=== PATIENT | female | born 1965 | race African-American/Black ===

== ENCOUNTER 2019-10-05 20:52 | Emergency (ER) | payer OTHER ==
[~2019-10-05] VITALS: Ht 165.1 cm; Wt 54.4 kg
[~2019-10-05 20:52] MED LIST: AMLO5TAB10 PO; BUDE10.2 IH
[2019-10-05 21:31] LABS: BILIRUBIN,URINE NEGATIVE (NEG); CLARITY,URINE CLEAR; COLOR,URINE YELLOW; NITRITE,URINE NEGATIVE (NEG); PH,URINE 5.5; PROTEIN,URINE 30 mg/dL (NEG-TRACE); UROBILINOGEN,URINE 0.2 mg/dL (0.2 mg/dL)
[2019-10-05 21:36] LABS: SQUAMOUS EPITHELIAL CELL,UR MOD /LPF
[2019-10-05 21:38] LABS: BACTERIA,URINE FEW /HPF (0-FEW); BASO # 0.1 x10^3/uL (0.0-0.2); BASO % 3 % (0-3); EOS # 0.4 x10^3/uL (0.0-0.7); EOS % 9 % (0-3); HEMATOCRIT 40.5 % (36.0-47.0); HEMOGLOBIN 13.7 g/dL (12.0-15.5); LYMPH # 2.7 x10^3/uL (1.0-4.8); LYMPH % 58 % (24-48); MEAN CORPUSCULAR HEMOGLOBIN 34 pg (25-35); MEAN CORPUSCULAR HGB CONC 34 g/dL (31-37); MEAN CORPUSCULAR VOLUME 100 fL (79-100); MONO # 0.5 x10^3/uL (0.0-1.1); MONO % 10 % (0-9); NEUT % 21 % (31-73); PLATELET COUNT 243 x10^3/uL (140-400); RBC,URINE 0 /HPF (0-2); RED BLOOD COUNT 4.03 x10^6/uL (3.50-5.40); RED CELL DISTRIBUTION WIDTH 14.4 % (11.5-14.5); TRICHOMONAS,URINE PRESENT; WHITE BLOOD COUNT 4.7 x10^3/uL (4.0-11.0)
[2019-10-05 21:39] LABS: CALCIUM 8.5 mg/dL (8.5-10.1); CREATININE 0.8 mg/dL (0.6-1.0); GFR 90.1; POTASSIUM 3.8 mmol/L (3.5-5.1)
[2019-10-05 21:44] LABS: ALBUMIN 3.5 g/dL (3.4-5.0); ALBUMIN/GLOBULIN RATIO 0.9 (1.0-1.7); MAGNESIUM 1.8 mg/dL (1.8-2.4); TOTAL BILIRUBIN 0.1 mg/dL (0.2-1.0); TOTAL PROTEIN 7.3 g/dL (6.4-8.2)
[2019-10-05 21:45] LABS: PROTHROMBIN TIME PATIENT 12.4 SEC (11.7-14.0)
--- NOTE | 2019-10-05 22:36 | RAD ---
EXAM: CHEST ONE VIEW. HISTORY: Shortness of breath. COMPARISON: 12/30/2015. FINDINGS: A frontal view of the chest is obtained. There are no confluent infiltrates. There is no pneumothorax or pleural effusion. The heart is not enlarged. IMPRESSION: 1. No confluent infiltrates. Electronically signed by: Chad Marinelli MD (10/05/2019 10:33 PM) [facility]
[2019-10-05] MEDS: IPRATRPIUM/ALBUTEROL 0.5/2.5MG 3 ML NEBU. NEB ONE (23:09)
[2019-10-05] MEDS ORDERED: ALBU2.5V8 IH (23:49)
[2019-10-05] MEDS ORDERED: PRED20TA PO (23:49)
[2019-10-05] MEDS ORDERED: AZIT250T PO (23:49)
--- NOTE | 2019-10-05 23:49 | PHYS DOC ---
Past Medical History Past Medical History: Asthma, Depression, Hypertension Additional Past Medical Histor: seasonal allergies Past Surgical History: Additional Past Surgical Histo: Oral Alcohol Use: Heavy Drug Use: None Adult General Chief Complaint Chief Complaint: SHORTNESS OF BREATH HPI HPI Patient is a 54 year old male who was brought here by EMS from home due to trouble breathing and cough for the last 4 days. Patient has COPD and asthma, she is a smoker. Patient continued to smoke pack a day. She is not on oxygen at home. She had been coughing so much that her chest hurt when she cough. Patient is a very poor historian, patient kept falling asleep. Patient appeared intoxicated. She denies any history of coronary artery disease, no recent travel or operation. All other ROS is negative unless otherwise noted in HPI Review of Systems Review of Systems See above Current Medications Current Medications Current Medications Medications (Trade) Dose Ordered Sig/Krishna Start Time Stop Time Status Last Admin Dose Admin Albuterol/ Ipratropium (Duoneb) 3 ml 1X ONCE 10/05/19 23:45 10/05/19 23:46 DC 10/06/19 00:12 3 ML Allergies Allergies Allergies Coded Allergies Type Severity Reaction Last Updated Verified shellfish derived Allergy Severe swelling 10/05/19 No Penicillins Allergy Intermediate rash 10/05/19 No Physical Exam Physical Exam See above Constitutional: Well developed, well nourished, no acute distress, non-toxic appearance. [] HENT: Normocephalic, atraumatic, bilateral external ears normal, oropharynx moist, no oral exudates, nose normal. [] Eyes: PERRLA, EOMI, conjunctiva normal, no discharge. [] Neck: Normal range of motion, no tenderness, supple, no stridor. [] Cardiovascular:Heart rate regular rhythm, no murmur [] Lungs & Thorax: Diffuse expiratory and expiratory wheezing, NO respiratory distr ess, NO STRIDOR. Abdomen: Bowel sounds normal, soft, no tenderness, no masses, no pulsatile masses. [] Skin: Warm, dry, no erythema, no rash. [] Back: No tenderness, no CVA tenderness. [] Extremities: No tenderness, no cyanosis, no clubbing, ROM intact, no edema. [] Neurologic: Alert and oriented X 3, normal motor function, normal sensory function, no focal deficits noted. [] Psychologic: Affect normal, judgement normal, mood normal. [] Current Patient Data Vital Signs Vital Signs Date Time Temp Pulse Resp B/P (MAP) Pulse Ox O2 Delivery O2 Flow Rate FiO2 10/06/19 00:14 94 Room Air 10/05/19 23:55 76 84/50 (61) 10/05/19 20:52 98.2 18 98.2 Lab Values Laboratory Tests Test 10/05/19 21:14 White Blood Count 4.7 x10^3/uL (4.0-11.0) Red Blood Count 4.03 x10^6/uL (3.50-5.40) Hemoglobin 13.7 g/dL (12.0-15.5) Hematocrit 40.5 % (36.0-47.0) Mean Corpuscular Volume 100 fL (79-100) Mean Corpuscular Hemoglobin 34 pg (25-35) Mean Corpuscular Hemoglobin Concent 34 g/dL (31-37) Red Cell Distribution Width 14.4 % (11.5-14.5) Platelet Count 243 x10^3/uL (140-400) Neutrophils (%) (Auto) 21 % (31-73) L Lymphocytes (%) (Auto) 58 % (24-48) H Monocytes (%) (Auto) 10 % (0-9) H Eosinophils (%) (Auto) 9 % (0-3) H Basophils (%) (Auto) 3 % (0-3) Neutrophils # (Auto) 1.0 x10^3/uL (1.8-7.7) L Lymphocytes # (Auto) 2.7 x10^3/uL (1.0-4.8) Monocytes # (Auto) 0.5 x10^3/uL (0.0-1.1) Eosinophils # (Auto) 0.4 x10^3/uL (0.0-0.7) Basophils # (Auto) 0.1 x10^3/uL (0.0-0.2) Prothrombin Time 12.4 SEC (11.7-14.0) Prothrombin Time INR 1.0 (0.8-1.1) Urine Collection Type Unknown Urine Color Yellow Urine Clarity Clear Urine pH 5.5 Urine Specific [place] <=1.005 Urine Protein 30 mg/dL (NEG-TRACE) Urine Glucose (UA) Negative mg/dL (NEG) Urine Ketones (Stick) Negative mg/dL (NEG) Urine Blood Negative (NEG) Urine Nitrite Negative (NEG) Urine Bilirubin Negative (NEG) Urine Urobilinogen Dipstick 0.2 mg/dL (0.2 mg/dL) Urine Leukocyte Esterase Small (NEG) Urine RBC 0 /HPF (0-2) Urine WBC 5-10 /HPF (0-4) Urine Squamous Epithelial Cells Mod /LPF Urine Bacteria Few /HPF (0-FEW) Urine Trichomonas Present Sodium Level 145 mmol/L (136-145) Potassium Level 3.8 mmol/L (3.5-5.1) Chloride Level 106 mmol/L (98-107) Carbon Dioxide Level 25 mmol/L (21-32) Anion Gap 14 (6-14) Blood Urea Nitrogen 9 mg/dL (7-20) Creatinine 0.8 mg/dL (0.6-1.0) Estimated GFR (Cockcroft-Gault) 90.1 BUN/Creatinine Ratio 11 (6-20) Glucose Level 92 mg/dL (70-99) Calcium Level 8.5 mg/dL (8.5-10.1) Magnesium Level 1.8 mg/dL (1.8-2.4) Total Bilirubin 0.1 mg/dL (0.2-1.0) L Aspartate Amino Transferase (AST) 99 U/L (15-37) H Alanine Aminotransferase (ALT) 49 U/L (14-59) Alkaline Phosphatase 65 U/L (46-116) Troponin I Quantitative < 0.017 ng/mL (0.000-0.055) XZ-Irs-R-Type Natriuretic Peptide 36 pg/mL (0-124) Total Protein 7.3 g/dL (6.4-8.2) Albumin 3.5 g/dL (3.4-5.0) Albumin/Globulin Ratio 0.9 (1.0-1.7) L Lipase 229 U/L (73-393) Laboratory Tests 10/05/19 21:14 Laboratory Tests 10/05/19 21:14 EKG EKG EKG with heart rate of 74 beats per minutes, sinus rhythm, no ST elevation, Radiology/Procedures Radiology/Procedures [][facility] [address] [place] [address] IMAGING REPORT Signed PATIENT: JOSUE CHAND AACCOUNT: [id number] : 1965 LOCATION: ER AGE: 54 SEX: F EXAM STATUS: REG ER ORD. PHYSICIAN: ESTEFANI PHILIP DO REASON: SOA PROCEDURE: PORTABLE CHEST 1V EXAM: CHEST ONE VIEW. HISTORY: Shortness of breath. COMPARISON: 12/30/2015. FINDINGS: A frontal view of the chest is obtained. There are no confluent infiltrates. There is no pneumothorax or pleural effusion. The heart is not enlarged. IMPRESSION: 1. No confluent infiltrates. Electronically signed by: Chad Marinelli MD (10/05/2019 10:33 PM) [facility] DICTATED and SIGNED BY: RONA MARINELLI MD DATE: 10/05/192232 Course & Med Decision Making Course & Med Decision Making Pertinent Labs and Imaging studies reviewed. (See chart for details) She is A 54 -year-old female who was evaluated in the ER for COPD exacerbation. Oxygen saturation is 96% on room air, chest x-ray showed no pneumonia, she will be discharged home with COPD and bronchitis. Patient WAS given prescription for steroid, ALBUTEROL mdi, zithromax. Dragon Disclaimer Dragon Disclaimer This electronic medical record was generated, in whole or in part, using a voice recognition dictation system. Departure Departure Impression: Primary Impression: COPD with exacerbation Disposition: HOME, SELF-CARE Condition: IMPROVED Referrals: MARCO A YIN MD (PCP) PLEASE CALL YOUR DOCTOR ON MONDAY FOR REEVALUATION. Patient Instructions: Chronic Obstructive Pulmonary Disease Exacerbation Scripts Prednisone (PREDNISONE) 20 Mg Tablet 20 MG PO DAILY for 12 Days, #12 TAB Prov: ESTEFANI PHILIP DO 10/05/19 Azithromycin (ZITHROMAX) 250 Mg Tablet 1 PKG PO UD, #6 TAB Prov: ESTEFANI PHILIP DO 10/05/19 Albuterol Sulfate (PROAIR HFA INHALER) 8.5 Gm Hfa.aer.ad 2 PUFF IH PRN Q4-6HRS PRN for wheezing for 21 Days, #1 INHALER 0 Refills Prov: ESTEFANI PHILIP DO 10/05/19 ESTEFANI PHILIP DO Oct 05, 2019 23:49
[2019-10-06] MEDS: IPRATRPIUM/ALBUTEROL 0.5/2.5MG 3 ML NEBU. NEB ONE (00:12)
[2019-10-06 00:20] VITALS: BP 121/69
--- NOTE | 2019-10-06 16:32 | EKG ---
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
== END 2019-10-06 00:30 | disposition home or self-care (01) ==
LOC: ER 20:52
DX: J44.1 Chronic obstructive pulmonary disease with (acute) exacerbation (principal); I10 Essential (primary) hypertension; F10.20 Alcohol dependence, uncomplicated; Y90.9 Presence of alcohol in blood, level not specified; Z88.0 Allergy status to penicillin; Z91.013 Allergy to seafood
CPT/HCPCS: 36415; 71045; 80053; 81001; 83690; 83735; 83880; 84484; 85025; 85610; 87086; 93005; 94640; 94760; 99285; J7620

== ENCOUNTER 2019-12-12 13:10 | Emergency (ER) | payer OTHER ==
[~2019-12-12] VITALS: Ht 160 cm; Wt 54.5 kg
[~2019-12-12 13:10] MED LIST changes: +ALBU2.5V8 IH; +AZIT250T PO; +PRED20TA PO
[2019-12-12] MEDS ORDERED: IPRATRPIUM/ALBUTEROL 0.5/2.5MG 3 ML NEBU. NEB ONE (13:30)
[2019-12-12] MEDS ORDERED: methylPREDNISolone SOD SUCC PF 125 MG/2 ML VIAL. IV ONE (13:30)
[2019-12-12 14:08] LABS: BASO # 0.2 x10^3/uL (0.0-0.2); BASO % 4 % (0-3); EOS # 0.6 x10^3/uL (0.0-0.7); EOS % 14 % (0-3); HEMATOCRIT 41.6 % (36.0-47.0); HEMOGLOBIN 14.1 g/dL (12.0-15.5); LYMPH # 2.6 x10^3/uL (1.0-4.8); LYMPH % 55 % (24-48); MEAN CORPUSCULAR HEMOGLOBIN 34 pg (25-35); MEAN CORPUSCULAR HGB CONC 34 g/dL (31-37); MEAN CORPUSCULAR VOLUME 99 fL (79-100); MONO # 0.4 x10^3/uL (0.0-1.1); MONO % 8 % (0-9); NEUT # 0.9 x10^3/uL (1.8-7.7); NEUT % 19 % (31-73); PLATELET COUNT 295 x10^3/uL (140-400); RED CELL DISTRIBUTION WIDTH 14.1 % (11.5-14.5); WHITE BLOOD COUNT 4.6 x10^3/uL (4.0-11.0)
--- NOTE | 2019-12-12 14:12 | RAD ---
AP portable chest radiograph 12/12/2019 Clinical History: Cough and shortness of breath. An AP erect portable digital radiograph of the chest was obtained. Comparison study is dated 10/05/2019. The cardiac and mediastinal silhouettes are within normal limits in size and configuration. No acute pulmonary infiltrate is seen. No pleural effusion or pneumothorax is noted. The osseous structures are unchanged. Impression: No acute abnormality is seen. Electronically signed by: Hernando Young MD (12/12/2019 2:09 PM) [facility]
[2019-12-12 14:17] LABS: CALCIUM 9.1 mg/dL (8.5-10.1); CREATININE 0.6 mg/dL (0.6-1.0); GFR 125.6
[2019-12-12 14:23] LABS: ALBUMIN 3.5 g/dL (3.4-5.0); TOTAL BILIRUBIN 0.1 mg/dL (0.2-1.0); TOTAL PROTEIN 7.1 g/dL (6.4-8.2)
--- NOTE | 2019-12-12 14:30 | PHYS DOC ---
Past Medical History Past Medical History: Asthma, Depression, Hypertension Additional Past Medical Histor: seasonal allergies Past Surgical History: Additional Past Surgical Histo: Oral Smoking Status: Current Every Day Smoker Alcohol Use: Heavy Drug Use: None Adult General Chief Complaint Chief Complaint: SHORTNESS OF BREATH HPI HPI Patient is a 54 year old female who presented to ER today for evaluation of 2 weeks history of cough, flulike symptoms. Patient also complained of fever and chills. Patient denies any abdominal pain, no nausea vomiting. Patient denies any chest pain, but having trouble breathing. Patient denies any recent travel out of the country. No travel to [facility] or [place]. Patient has history of asthma, she was given DuoNeb treatment by EMS on route. Review of Systems Review of Systems Constitutional: Denies fever or chills [] Eyes: Denies change in visual acuity, redness, or eye pain [] HENT: Denies nasal congestion or sore throat [] Respiratory: Denies cough or shortness of breath [] Cardiovascular: No additional information not addressed in HPI [] GI: Denies abdominal pain, nausea, vomiting, bloody stools or diarrhea [] : Denies dysuria or hematuria [] Musculoskeletal: Denies back pain or joint pain [] Integument: Denies rash or skin lesions [] Neurologic: Denies headache, focal weakness or sensory changes [] Endocrine: Denies polyuria or polydipsia [] All other systems were reviewed and found to be within normal limits, except as documented in this note. Current Medications Current Medications Current Medications Medications (Trade) Dose Ordered Sig/Krishna Start Time Stop Time Status Last Admin Dose Admin Albuterol/ Ipratropium (Duoneb) 3 ml 1X ONCE 12/12/19 13:30 12/12/19 13:33 DC 12/12/19 13:41 3 ML Methylprednisolone Sodium Succinate (SOLU-Medrol 125MG VIAL) 125 mg 1X ONCE 12/12/19 13:30 12/12/19 13:33 DC 12/12/19 14:58 125 MG Allergies Allergies Allergies Coded Allergies Type Severity Reaction Last Updated Verified shellfish derived Allergy Severe swelling 10/05/19 No Penicillins Allergy Intermediate rash 10/05/19 No Physical Exam Physical Exam Constitutional: Well developed, well nourished, no acute distress, non-toxic appearance. [] HENT: Normocephalic, atraumatic, bilateral external ears normal, oropharynx moist, no oral exudates, nose normal. [] Eyes: PERRLA, EOMI, conjunctiva normal, no discharge. [] Neck: Normal range of motion, no tenderness, supple, no stridor. [] Cardiovascular:Heart rate regular rhythm, no murmur [] Lungs & Thorax: Bilateral breath sounds clear to auscultation [] Abdomen: Bowel sounds normal, soft, no tenderness, no masses, no pulsatile masses. [] Skin: Warm, dry, no erythema, no rash. [] Back: No tenderness, no CVA tenderness. [] Extremities: No tenderness, no cyanosis, no clubbing, ROM intact, no edema. [] Neurologic: Alert and oriented X 3, normal motor function, normal sensory function, no focal deficits noted. [] Psychologic: Affect normal, judgement normal, mood normal. [] Current Patient Data Vital Signs Vital Signs Date Time Temp Pulse Resp B/P (MAP) Pulse Ox O2 Delivery O2 Flow Rate FiO2 12/12/19 14:25 65 111/67 (82) 92 Room Air 12/12/19 13:10 98.6 20 98.6 Lab Values Laboratory Tests Test 12/12/19 13:21 White Blood Count 4.6 x10^3/uL (4.0-11.0) Red Blood Count 4.20 x10^6/uL (3.50-5.40) Hemoglobin 14.1 g/dL (12.0-15.5) Hematocrit 41.6 % (36.0-47.0) Mean Corpuscular Volume 99 fL (79-100) Mean Corpuscular Hemoglobin 34 pg (25-35) Mean Corpuscular Hemoglobin Concent 34 g/dL (31-37) Red Cell Distribution Width 14.1 % (11.5-14.5) Platelet Count 295 x10^3/uL (140-400) Neutrophils (%) (Auto) 19 % (31-73) L Lymphocytes (%) (Auto) 55 % (24-48) H Monocytes (%) (Auto) 8 % (0-9) Eosinophils (%) (Auto) 14 % (0-3) H Basophils (%) (Auto) 4 % (0-3) H Neutrophils # (Auto) 0.9 x10^3/uL (1.8-7.7) L Lymphocytes # (Auto) 2.6 x10^3/uL (1.0-4.8) Monocytes # (Auto) 0.4 x10^3/uL (0.0-1.1) Eosinophils # (Auto) 0.6 x10^3/uL (0.0-0.7) Basophils # (Auto) 0.2 x10^3/uL (0.0-0.2) Segmented Neutrophils % 21 % (35-66) L Lymphocytes % 51 % (24-48) H Monocytes % 5 % (0-10) Eosinophils % 19 % (0-5) H Basophils % 4 % (0-3) H Platelet Estimate Adequate (ADEQUATE) Sodium Level 144 mmol/L (136-145) Potassium Level 4.0 mmol/L (3.5-5.1) Chloride Level 104 mmol/L (98-107) Carbon Dioxide Level 30 mmol/L (21-32) Anion Gap 10 (6-14) Blood Urea Nitrogen 6 mg/dL (7-20) L Creatinine 0.6 mg/dL (0.6-1.0) Estimated GFR (Cockcroft-Gault) 125.6 BUN/Creatinine Ratio 10 (6-20) Glucose Level 96 mg/dL (70-99) Calcium Level 9.1 mg/dL (8.5-10.1) Total Bilirubin 0.1 mg/dL (0.2-1.0) L Aspartate Amino Transferase (AST) 94 U/L (15-37) H Alanine Aminotransferase (ALT) 81 U/L (14-59) H Alkaline Phosphatase 69 U/L (46-116) Total Protein 7.1 g/dL (6.4-8.2) Albumin 3.5 g/dL (3.4-5.0) Albumin/Globulin Ratio 1.0 (1.0-1.7) Laboratory Tests 12/12/19 13:21 Laboratory Tests 12/12/19 13:21 EKG EKG [] Radiology/Procedures Radiology/Procedures [][facility] [address] [place], [place] [id number] IMAGING REPORT Signed PATIENT: JOSUE CHAND AACCOUNT: [id number] : 1965 LOCATION: ER AGE: 54 SEX: F EXAM STATUS: REG ER ORD. PHYSICIAN: ESTEFANI PHILIP DO REASON: COUGH, SOA PROCEDURE: CHEST AP ONLY AP portable chest radiograph 12/12/2019 Clinical History: Cough and shortness of breath. An AP erect portable digital radiograph of the chest was obtained. Comparison study is dated 10/05/2019. The cardiac and mediastinal silhouettes are within normal limits in size and configuration. No acute pulmonary infiltrate is seen. No pleural effusion or pneumothorax is noted. The osseous structures are unchanged. Impression: No acute abnormality is seen. Electronically signed by: Hernando Young MD (12/12/2019 2:09 PM) [facility] DICTATED and SIGNED BY: HERNANDO YOUNG MD DATE: 12/12/19 1409 Course & Med Decision Making Course & Med Decision Making Pertinent Labs and Imaging studies reviewed. (See chart for details) Patient is a 54-year-old female who was evaluated in the ER due to asthmatic bronchitis. Patient was given medication, felt much better. Patient will be discharged home with medication. Patient was instructed return to ER if she get any better. Dragon Disclaimer Dragon Disclaimer This electronic medical record was generated, in whole or in part, using a voice recognition dictation system. Departure Departure Impression: Primary Impression: Bronchitis Additional Impression: Asthmatic bronchitis Disposition: 01 HOME, SELF-CARE Condition: STABLE Referrals: MARCO A YIN MD (PCP) please follow up with your doctor next week. Patient Instructions: Acute Bronchitis, Asthma, Acute Bronchospasm Additional Instructions: Thank you for visiting our Emergency Department. We appreciate you trusting us with your care. If any additional problems come up don't hesitate to return to visit us. Please follow up with your primary care provider so they can plan additional care if needed and know about the problem that you had. If symptoms worsen come back to the Emergency Department. Any concerning symptoms that start such as chest pain, shortness of air, weakness or numbness on one side of the body, running high fevers or any other concerning symptoms return to the ER. Scripts Albuterol Sulfate (PROAIR HFA INHALER) 8.5 Gm Hfa.aer.ad 2 PUFF IH PRN Q4-6HRS PRN for wheezing for 21 Days, #1 INHALER 0 Refills Prov: ESTEFANI PHILIP DO 12/12/19 Prednisone (PREDNISONE) 20 Mg Tablet 1 TAB PO DAILY for 10 Days, #10 TAB Prov: ESTEFANI PHILIP DO 12/12/19 Azithromycin (ZITHROMAX) 250 Mg Tablet 1 PKG PO UD, #6 TAB Prov: ESTEFANI PHILIP DO 12/12/19 Problem Qualifiers ESTEFANI PHILIP DO Dec 12, 2019 14:30
[2019-12-12 15:04] LABS: % BASOS 4 % (0-3); % EOS 19 % (0-5); % LYMPHS 51 % (24-48); % MONOS 5 % (0-10); % SEGS 21 % (35-66); PLT ESTIMATE ADEQUATE (ADEQUATE)
[2019-12-12] MEDS ORDERED: ALBU2.5V8 IH (15:49)
[2019-12-12] MEDS ORDERED: AZIT250T PO (15:49)
[2019-12-12] MEDS ORDERED: PRED20TA PO (15:49)
[2019-12-12 16:55] VITALS: BP 145/89
== END 2019-12-12 17:20 | disposition home or self-care (01) ==
LOC: ER 13:10
DX: J45.909 Unspecified asthma, uncomplicated (principal); I10 Essential (primary) hypertension; F17.200 Nicotine dependence, unspecified, uncomplicated; F10.20 Alcohol dependence, uncomplicated; Y90.9 Presence of alcohol in blood, level not specified; Z88.0 Allergy status to penicillin; Z91.013 Allergy to seafood
CPT/HCPCS: 36415; 71045; 80053; 85007; 85025; 94640; 96374; 99285; J2930

== ENCOUNTER 2020-01-20 16:55 | Emergency (ER) | payer OTHER ==
[~2020-01-20] VITALS: Ht 157.5 cm; Wt 59.0 kg
[2020-01-20 17:02] VITALS: BP 138/82
--- NOTE | 2020-01-20 17:30 | PHYS DOC ---
Past Medical History Past Medical History: Asthma, Depression, Hypertension Additional Past Medical Histor: seasonal allergies Past Surgical History: Additional Past Surgical Histo: Oral Smoking Status: Current Every Day Smoker Alcohol Use: Heavy Drug Use: None General Adult EDM: Chief Complaint: right leg weakness, lower back pain HPI: HPI: Patient is a 55 year old female presented to ER today for evaluation of low back pain that radiates to her right leg. Patient also complained right leg weakness. All this symptom has been going on for more than 6 months. Patient was seen by her family doctor, diagnosed with arthritis. But patient is not satisfied with her diagnosis. Patient denies any bowel or bladder incontinence. Patient denied headache, no neck pain, no abdominal pain, no nausea or vomiting. Patient has history of hypertension. Patient says sometimes she cannot feel her right leg because of the numbness. Patient called her doctor again today who told her to come to the ER for evaluation. Patient denies any injury. Review of Systems: Review of Systems: Constitutional: Denies fever or chills. [] Eyes: Denies change in visual acuity. [] HENT: Denies nasal congestion or sore throat. [] Respiratory: Denies cough or shortness of breath. [] Cardiovascular: Denies chest pain or edema. [] GI: Denies abdominal pain, nausea, vomiting, bloody stools or diarrhea. [] : Denies dysuria. [] Musculoskeletal: Positive for lower back pain with right leg weakness. Integument: Denies rash. [] Neurologic: Denies headache, focal weakness or sensory changes. [] Endocrine: Denies polyuria or polydipsia. [] Lymphatic: Denies swollen glands. [] Psychiatric: Denies depression or anxiety. [] Heart Score: Risk Factors: Risk Factors: DM, Current or recent (<one month) smoker, HTN, HLP, family history of CAD, obesity. Risk Scores: Score 0 - 3: 2.5% MACE over next 6 weeks - Discharge Home Score 4 - 6: 20.3% MACE over next 6 weeks - Admit for Clinical Observation Score 7 - 10: 72.7% MACE over next 6 weeks - Early Invasive Strategies Allergies: Allergies: Allergies Coded Allergies Type Severity Reaction Last Updated Verified shellfish derived Allergy Severe swelling 10/05/19 No Penicillins Allergy Intermediate rash 10/05/19 No Physical Exam: PE: Constitutional: Well developed, well nourished, no acute distress, non-toxic appearance. [] HENT: Normocephalic, atraumatic, bilateral external ears normal, oropharynx moist, no oral exudates, nose normal. [] Eyes: PERRLA, EOMI, conjunctiva normal, no discharge. [] Neck: Normal range of motion, no tenderness, supple, no stridor. [] Cardiovascular:Heart rate regular rhythm, no murmur [] Lungs & Thorax: Bilateral breath sounds clear to auscultation [] Abdomen: Bowel sounds normal, soft, no tenderness, no masses, no pulsatile masses. [] Skin: Warm, dry, no erythema, no rash. [] Back: No tenderness, no CVA tenderness. [] Extremities: No tenderness, no cyanosis, ROM intact, no edema. There is no leg swelling, no calf swelling or tenderness. There is strong bilateral dorsalis pedis pulse. Neurologic: Alert and oriented X 3, right leg is weaker than left leg, patient can move all of her extremities, normal sensory function, no focal deficits noted. [] Psychologic: Affect normal, judgement normal, mood normal. [] EKG: EKG: [] Radiology/Procedures: Radiology/Procedures: [][facility] [address] [place] [address] IMAGING REPORT Signed PATIENT: JOSUE CHAND AACCOUNT: [id number] : 1965 LOCATION: ER AGE: 55 SEX: F EXAM STATUS: REG ER ORD. PHYSICIAN: ESTEFANI PHILIP DO REASON: right leg weakness and numbness PROCEDURE: CT HEAD WO CONTRAST PQRS Compliance Statement: One or more of the following individualized dose reduction techniques were utilized for this examination: 1. Automated exposure control 2. Adjustment of the mA and/or kV according to patient size 3. Use of iterative reconstruction technique CT head without contrast 01/20/2020 5:08 PM INDICATION: Right leg weakness and numbness COMPARISON: None available TECHNIQUE: Multiple axial CT images of the head were obtained from skull base through the vertex without intravenous contrast. FINDINGS: Head: Ventricles, sulci and basal cisterns are within normal limits. Low-attenuation in the periventricular white matter is suggestive of chronic small vessel ischemic changes. There is no hydrocephalus. Canas-white matter differentiation is normal. There is no acute intracranial hemorrhage. There is no mass, mass effect or midline shift. Posterior fossa is normal in appearance. Visualized portions of the orbits are normal. Paranasal sinuses are well aerated. Mastoid air cells are well aerated. Scalp and calvaria are normal. IMPRESSION: No acute intracranial hemorrhage. Electronically signed by: Jeff Asencio MD (01/20/2020 5:27 PM) [facility] DICTATED and SIGNED BY: JEFF ASENCIO MD DATE: 01/20/20 172 X-ray of lumbar spine did not show any acute problem , some arthritis in L5-S1 area. Course & Med Decision Making: Course & Med Decision Making Pertinent Labs and Imaging studies reviewed. (See chart for details) [] Dragon Disclaimer: Dragon Disclaimer: This electronic medical record was generated, in whole or in part, using a voice recognition dictation system. Departure Departure Impression: Primary Impression: Sciatica of right side Disposition: 01 HOME, SELF-CARE Condition: STABLE Referrals: MARCO A YIN MD (PCP) Follow-up with your doctor for outpatient evaluation with MRI of your lower back Patient Instructions: ESTEFANI Saldana DO Jan 20, 2020 17:30
[2020-01-20 17:34] LABS: BASO % 0 % (0-3); EOS # 0.1 x10^3/uL (0.0-0.7); EOS % 2 % (0-3); HEMATOCRIT 38.9 % (36.0-47.0); HEMOGLOBIN 13.2 g/dL (12.0-15.5); LYMPH # 2.7 x10^3/uL (1.0-4.8); LYMPH % 64 % (24-48); MEAN CORPUSCULAR HEMOGLOBIN 33 pg (25-35); MEAN CORPUSCULAR HGB CONC 34 g/dL (31-37); MEAN CORPUSCULAR VOLUME 98 fL (79-100); MONO # 0.3 x10^3/uL (0.0-1.1); MONO % 7 % (0-9); NEUT # 1.1 x10^3/uL (1.8-7.7); NEUT % 27 % (31-73); PLATELET COUNT 203 x10^3/uL (140-400); RED BLOOD COUNT 3.96 x10^6/uL (3.50-5.40); RED CELL DISTRIBUTION WIDTH 14.2 % (11.5-14.5); WHITE BLOOD COUNT 4.2 x10^3/uL (4.0-11.0)
[2020-01-20 17:38] LABS: CALCIUM 8.4 mg/dL (8.5-10.1); CREATININE 0.7 mg/dL (0.6-1.0); GFR 104.7; POTASSIUM 3.7 mmol/L (3.5-5.1)
[2020-01-20 17:45] LABS: ALBUMIN 3.4 g/dL (3.4-5.0); ALBUMIN/GLOBULIN RATIO 0.9 (1.0-1.7); MAGNESIUM 1.5 mg/dL (1.8-2.4); TOTAL BILIRUBIN 0.2 mg/dL (0.2-1.0); TOTAL PROTEIN 7.2 g/dL (6.4-8.2)
--- NOTE | 2020-01-20 17:46 | RAD ---
LUMBAR SPINE 2-3V History: Low back pain into the right leg, numbness, loss of feeling in the leg Comparison: None available at this time Findings: 3 views lumbar spine are submitted. Lumbar vertebral body stature and AP alignment are maintained. There is fairly advanced L5-S1 degenerative disc disease, minimally of the more superior levels. There is facet degenerative change greatest at L5-S1 and L4-5, greater on the left. Calcifications in the right pelvis are more likely phleboliths. Impression: 1. There is L5-S1 degenerative disc disease, also facet degenerative change greatest at L5-S1 and L4-5. Electronically signed by: Frank Valencia MD (01/20/2020 5:43 PM) [facility]
[2020-01-20 17:51] LABS: FREE T4 0.72 ng/dL (0.76-1.46); THYROID STIM HORMONE (TSH) 0.646 uIU/mL (0.358-3.74)
== END 2020-01-20 17:53 | disposition home or self-care (01) ==
LOC: ER 16:55
DX: M54.41 Lumbago with sciatica, right side (principal); R51 Headache; I10 Essential (primary) hypertension; J45.909 Unspecified asthma, uncomplicated; F17.200 Nicotine dependence, unspecified, uncomplicated; F10.20 Alcohol dependence, uncomplicated; Y90.9 Presence of alcohol in blood, level not specified; Z88.0 Allergy status to penicillin; Z91.013 Allergy to seafood
CPT/HCPCS: 36415; 70450; 72100; 80053; 83735; 84439; 84443; 85025; 99285-25

== ENCOUNTER 2020-02-25 11:42 | Inpatient (IN) | payer OTHER ==
[~2020-02-25] VITALS: Ht 157.5 cm; Wt 65.4 kg
[2020-02-25 12:00] VITALS: BP 129/67
[2020-02-25] MEDS ORDERED: IBUP-985 PO (12:44)
[2020-02-25] MEDS ORDERED: ATOR10TA60 PO (12:45)
[2020-02-25] MEDS ORDERED: NICO1PAT25 TP (12:45)
[2020-02-25] MEDS ORDERED: FLUT16SP NS (12:45)
[2020-02-25] MEDS ORDERED: NICO4LOZ93 PO (12:45)
[2020-02-25] MEDS ORDERED: PRED50TA PO (12:45)
[2020-02-25] MEDS ORDERED: CYCL5TAB PO (12:45)
[2020-02-25] MEDS ORDERED: MONT10TA49 PO (12:45)
[2020-02-25] MEDS ORDERED: PROAIR RESPICL90 MCG IN (12:47)
[2020-02-25] MEDS ORDERED: ALBUTEROL SULFATE 2.5 MG/3 ML NEBU. INH PRN (13:30)
[2020-02-25] MEDS ORDERED: IBUPROFEN 200 MG TABLET. PO PRN (13:30)
[2020-02-25] MEDS: ASPIRIN 325 MG TABLET PO SCH (13:49)
--- NOTE | 2020-02-25 14:26 | NUR ---
The patient, JOSUE CAHND, 55 y/o, F admitted by MARCO A YIN MD, was given written information regarding hospital policies, unit procedures and contact persons. Valuables were checked and home medications sent to pharmacy. Patients NIH score on admission is 2 consult placed to neuro and sponsorship coordinator.
[2020-02-25 14:46] LABS: BASO # 0.1 x10^3/uL (0.0-0.2); BASO % 1 % (0-3); EOS % 0 % (0-3); HEMATOCRIT 37.2 % (36.0-47.0); HEMOGLOBIN 12.7 g/dL (12.0-15.5); LYMPH # 2.9 x10^3/uL (1.0-4.8); LYMPH % 47 % (24-48); MEAN CORPUSCULAR HEMOGLOBIN 34 pg (25-35); MEAN CORPUSCULAR HGB CONC 34 g/dL (31-37); MEAN CORPUSCULAR VOLUME 99 fL (79-100); MONO # 0.4 x10^3/uL (0.0-1.1); MONO % 7 % (0-9); NEUT # 2.8 x10^3/uL (1.8-7.7); NEUT % 45 % (31-73); PLATELET COUNT 285 x10^3/uL (140-400); RED BLOOD COUNT 3.76 x10^6/uL (3.50-5.40); RED CELL DISTRIBUTION WIDTH 14.4 % (11.5-14.5); WHITE BLOOD COUNT 6.2 x10^3/uL (4.0-11.0)
--- NOTE | 2020-02-25 14:46 | RAD ---
Single view of the chest. 02/25/2020 1:20 PM Indication: Shortness of breath Comparison: Chest radiograph December 12, 2019 Findings: There is no focal consolidation. There is no pleural effusion or pneumothorax. The cardiomediastinal silhouette and pulmonary vasculature are within normal limits. No acute osseous abnormalities are seen. Impression: No evidence of acute cardiopulmonary process. Electronically signed by: Babak Yates MD (02/25/2020 2:43 PM) [id number]
--- NOTE | 2020-02-25 14:53 | CARD ---
MR#: [id number] Date of Study: 02/25/2020 Ordering Physician: MARCO A YIN, Referring Physician: MARCO A YIN, Tech: Altagracia Cheung RDCS APPROVED REPORT EXAM: Two-dimensional and M-mode echocardiogram with Doppler and color Doppler. Other Information Quality : Good INDICATION CVA/TIA 2D DIMENSIONS RVDd2.7 (2.9-3.5cm)Left Atrium(2D)2.7 (1.6-4.0cm) IVSd1.1 (0.7-1.1cm)Aortic Root(2D)2.9 (2.0-3.7cm) LVDd4.2 (3.9-5.9cm)LVOT Diameter2.1 (1.8-2.4cm) PWd1.0 (0.7-1.1cm)LVDs3.0 (2.5-4.0cm) FS (%) 29.7 %SV45.8 ml LVEF(%)57.1 (>50%) Aortic Valve AoV Peak Corbin.145.2cm/sAoV VTI26.5cm AO Peak GR.8.4mmHgLVOT Peak Corbin.104.8cm/s AO Mean GR.5mmHgAVA (VMAX)2.39cm2 ROGERS (VTI)2.40cm2 Mitral Valve MV E Hwzmnuwt84.2cm/sMV DECEL AOCD921fe MV A Bovrmiog59.2cm/sE/A Ratio1.0 Tricuspid Valve TR P. Qogrwewh448ih/sRAP JEWPTQNT2lkWa TR Peak Gr.54egEvBTKL15uvLj Pulmonary Vein S1 Rdpnjpsq63.2cm/sD2 Zkpuarxi43.2cm/s LEFT VENTRICLE The left ventricle is normal size. There is normal left ventricular wall thickness. The left ventricu lar systolic function is normal. The Ejection Fraction is 55-60%. There is normal LV segmental wall m otion. The left ventricular diastolic function and filling is normal for age. RIGHT VENTRICLE The right ventricle is normal size. The right ventricular systolic function is normal. ATRIA The left atrium size is normal. The right atrium size is normal. Bubble study was technically difficu lt but appears to be positive for interatrial shunt. AORTIC VALVE The aortic valve is calcified but opens well. Doppler and Color Flow revealed no significant aortic r egurgitation. There is no significant aortic valvular stenosis. MITRAL VALVE The mitral valve is calcified but opens well. There is no evidence of mitral valve prolapse. There is no mitral valve stenosis. Doppler and Color-flow revealed trace mitral regurgitation. TRICUSPID VALVE The tricuspid valve is normal in structure and function. Doppler and Color Flow revealed trace tricus pid regurgitation. The PA pressure was estimated at 26 mmHg. There is no tricuspid valve stenosis. PULMONIC VALVE The pulmonary valve is normal in structure and function. Doppler and Color Flow revealed no pulmonic valvular regurgitation. There is no pulmonic valvular stenosis. GREAT VESSELS The aortic root is normal in size. The ascending aorta is normal in size. The IVC is normal in size a nd collapses >50% with inspiration. PERICARDIAL EFFUSION There is no evidence of significant pericardial effusion. Critical Notification Critical Value: No <Conclusion> The left ventricular systolic function is normal. The Ejection Fraction is 55-60%. There is normal LV segmental wall motion. Trace mitral regurgitation. Trace tricuspid regurgitation. The PA pressure was estimated at 26 mmHg. There is no evidence of significant pericardial effusion. Bubble study was technically difficult but appears to be positive for interatrial shunt. Signed by : Pj Grewal, Electronically Approved : 02/25/2020 14:53:03
[2020-02-25 15:00] VITALS: BP 142/91
--- NOTE | 2020-02-25 15:06 | EKG ---
[facility] [address] [place] [address] Test Date: 2020-02-25 Test Time: 15:03:02 Pat Name: JOSUE CHAND Department: Room: 204 1 Gender: F Rn Radiation Oncology: : 1965 Requested By: MARCO A YIN Order Number: [id number] Reading MD: Timmy James MD Measurements Intervals [place] Rate: 83 P: 49 OR: 204 QRS: 31 QRSD: 80 T: 24 QT: 380 QTc: 447 Interpretive Statements SINUS RHYTHM VENTRICULAR PREMATURE COMPLEX(ES) Electronically Signed On 02-27-2020 11:49:48 CDT by Timmy James MD
[2020-02-25 15:09] LABS: ALBUMIN 3.1 g/dL (3.4-5.0); ALK PHOS 73 U/L (46-116); ALT (SGPT) 114 U/L (14-59); ANION GAP 9 (6-14); AST (SGOT) 160 U/L (15-37); BLOOD UREA NITROGEN 7 mg/dL (7-20); BUN/CREATININE RATIO 9 (6-20); CALCIUM 8.1 mg/dL (8.5-10.1); CARBON DIOXIDE 29 mmol/L (21-32); CHLORIDE 105 mmol/L (98-107); CHOLESTEROL 248 mg/dL (0-200); CREATININE 0.8 mg/dL (0.6-1.0); GFR 89.8; GLUCOSE 82 mg/dL (70-99); HDLC 112 mg/dL (40-60); LDLC 120 mg/dL (0-100); POTASSIUM 3.6 mmol/L (3.5-5.1); SODIUM 143 mmol/L (136-145); TOTAL PROTEIN 6.3 g/dL (6.4-8.2); TRIGLYCERIDES 78 mg/dL (0-150); VLDLC 16 mg/dL (0-40)
[2020-02-25 15:26] LABS: CHOLESTEROL/HDL RATIO 2.2; TOTAL BILIRUBIN < 0.1 mg/dL (0.2-1.0)
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
--- NOTE | 2020-02-25 16:15 | RAD ---
Examination: DOPPLER CAROTID BILAT History: Cerebrovascular accident Comparison study: None available. Findings: The common, internal and external carotid arteries were examined by grayscale, color and spectral Doppler ultrasound. There is no significant stenosis in the visualized vessels. Flow in both vertebral arteries was antegrade and normal. The following are the velocities and ratios in the carotid arteries on both sides: Minimal scattered plaque bilaterally seen. RIGHT ICA PV: 35 cm/sec RIGHT CCA PV: 76 cm/sec RIGHT ICA ED: 23 cm/sec RIGHT IC/CCPV: 0.91 RIGHT VERTEBRAL: antegrade flow LEFT ICA PV: 65 cm/sec LEFT CCA PV: 75 cm/sec LEFT ICA ED: 30 cm/sec LEFT IC/CCPV: 0.86 LEFT VERTEBRAL: antegrade flow <50% ICA Stenosis: PSV < 125cm/s (EDV < 40cm/s; SVR < 2.0) 50-69% ICA Stenosis: PSV < 125-229cm/s (EDV 40-99cm/s; SVR 2.0-3.9) >70% ICA Stenosis: PSV > 230cm/s (EDV >100cm/s; SVR >4.0) Impression: No significant hemodynamic stenosis. Minimal scattered plaque bilaterally seen. PQRS Compliance Statement - Stenosis calculations for CT, MR and conventional angiography are based upon measurement of the distal ICA diameter in accordance with the NASCET methodology. Stenosis calculations for carotid ultrasound studies are derived from validated velocity criteria which are known to correlate with the NASCET methodology. Electronically signed by: Viral Santos MD (02/25/2020 4:12 PM) [id number]
--- NOTE | 2020-02-25 16:51 | RAD ---
BRAIN W/O CONTRAST Date: 02/25/2020 3:38 PM Indication: Headache, memory loss, upper extremity numbness, foot drop Comparison: None. Technique: Multiplanar multisequence MRI of the brain was performed without intravenous contrast using the standard protocol. Findings: No acute infarct. No acute hemorrhage. Punctate focus of gradient susceptibility in the right putamen, likely chronic hypertensive microhemorrhage. The ventricles are normal in size and configuration without hydrocephalus. Moderate scattered FLAIR hyperintensities in the subcortical and periventricular deep white matter, a nonspecific finding, most commonly seen with chronic small vessel ischemic disease. The scalp and calvarium are normal. The pituitary and sella are normal. No Chiari malformation. The visualized upper cervical spine is normal. The visualized orbits and globes are normal. The visualized paranasal sinuses are clear. The mastoid air cells are clear. Normal flow voids within the vertebral, basilar, and internal carotid arteries indicating patency. IMPRESSION: 1. No acute infarct, acute hemorrhage, mass, or hydrocephalus. 2. Moderate scattered FLAIR hyperintensities in the subcortical and periventricular deep white matter, a nonspecific finding, most commonly seen with chronic small vessel ischemic disease. Electronically signed by: Frank Keane MD (02/25/2020 4:48 PM) [id number]
--- NOTE | 2020-02-25 17:25 | RAD ---
MRI Cervical Spine Without Contrast History:Headaches, memory loss, arm numbness and neck pain, right foot drop Technique: Multiplanar, multi sequential noncontrast MR imaging was performed of the cervical spine. Comparison: None Findings: There is motion degradation. Cervical cord caliber is within normal limits, no expansile or defined signal abnormality, limited evaluation for subtle signal change due to motion degradation. There is mild cervical dextroscoliosis. Cervical vertebral body stature is overall maintained. There is very minimal posterior subluxation of C4 relative to C5. There is weee-si-rgafggjw C4-5 degenerative disc disease and minimally at C5-6 and C6-7. There is variable degenerative endplate change C4-5-7. There is minimal C6-7 endplate edema probably reactive/degenerative in etiology. There is nonspecific mild prominence of the adenoids. There is T2 hyperintense lesion of the visualized right thyroid gland estimated about 0.8 cm. C2-C3: Spinal canal and neural foramina are adequate. C3-C4: Spinal canal and neural foramina are adequate. C4-C5: There is minimal disc osteophyte complex. Central canal is minimally narrowed about 9 to 10 mm. There is facet and uncovertebral degenerative change. There is probable fairly severe left and moderate to severe right neural foramina compromise. C5-C6: There is negligible disc osteophyte complex. Central canal is adequate about 11 mm. There is bilateral facet degenerative change, also likely mild uncovertebral degenerative change. There is likely mild narrowing of the right neural foramen, left neural foramen not significantly narrowed. C6-C7: There is negligible disc osteophyte complex. Central canal is adequate about 12 mm. There is uncovertebral and facet degenerative change. There is probable mild left and probable moderate to severe right neural foramina compromise. C7-T1: Spinal canal and neural foramina are adequate. Impression: 1. There is mild spinal stenosis C4-5. There is suspected neural foramina compromise as stated, more significant narrowing bilaterally at C4-5 and on the right at C6-7 in part due to facet and uncovertebral degenerative change. There is degenerative disc disease greatest at C4-5. Electronically signed by: Frank Valnecia MD (02/25/2020 5:22 PM) [id number]
--- NOTE | 2020-02-25 17:57 | RAD ---
LUMBAR SPINE WO CONTRAST Date: 02/25/2020 3:38 PM Indication: Back pain, right foot drop Comparison: None. Technique: Multi-planar multi-weighted magnetic resonance imaging of the lumbar spine was performed without intravenous contrast using the standard lumbar spine protocol. FINDINGS: The lumbar spine is normally aligned. No acute fracture. Multilevel degenerative disc desiccation and disc height loss, worst and moderate at L5-S1. Fatty degenerative endplate changes at L5-S1. The conus terminates at a normal level. No abnormal signal is seen within the visualized distal spinal cord. No clumping of intrathecal nerve roots. No soft tissue abnormality in the visualized abdomen or pelvis. T12-L1: No disc bulge. No facet arthropathy. No significant spinal stenosis or neural foraminal narrowing. L1-L2: No disc bulge. No facet arthropathy. No significant spinal stenosis or neural foraminal narrowing. L2-L3: No disc bulge. Mild facet arthropathy. No significant spinal stenosis or neural foraminal narrowing. L3-L4: No disc bulge. Mild facet arthropathy. No significant spinal stenosis or neural foraminal narrowing. L4-L5: Disc bulge. Severe facet arthropathy. No significant spinal stenosis. Mild bilateral neural foraminal narrowing. L5-S1: Disc bulge with annular tear and far lateral protrusions. Moderate facet arthropathy. No significant spinal stenosis. Mild bilateral neural foraminal narrowing. IMPRESSION: Mild to moderate lumbar spondylosis, detailed level by level above. No high-grade spinal canal stenosis. Electronically signed by: Frank Keane MD (02/25/2020 5:54 PM) [id number]
[2020-02-25 19:26] VITALS: BP 156/81
[2020-02-25] MEDS ORDERED: ATORVASTATIN CALCIUM 10 MG TABLET. PO SCH (21:00)
[2020-02-25] MEDS ORDERED: MONTELUKAST SODIUM 10 MG TABLET. PO SCH (21:00)
[2020-02-25] MEDS: CYCLOBENZAPRINE 10 MG TABLET. PO SCH (21:09)
[2020-02-25 22:38] VITALS: BP 180/95
[2020-02-26 02:37] VITALS: BP 162/101
[2020-02-26 04:07] LABS: BASO # 0.1 x10^3/uL (0.0-0.2); BASO % 2 % (0-3); EOS # 0.1 x10^3/uL (0.0-0.7); EOS % 1 % (0-3); HEMATOCRIT 36.4 % (36.0-47.0); HEMOGLOBIN 12.4 g/dL (12.0-15.5); LYMPH # 2.7 x10^3/uL (1.0-4.8); LYMPH % 53 % (24-48); MEAN CORPUSCULAR HEMOGLOBIN 34 pg (25-35); MEAN CORPUSCULAR HGB CONC 34 g/dL (31-37); MEAN CORPUSCULAR VOLUME 100 fL (79-100); MONO # 0.3 x10^3/uL (0.0-1.1); MONO % 6 % (0-9); NEUT # 1.9 x10^3/uL (1.8-7.7); NEUT % 37 % (31-73); PLATELET COUNT 273 x10^3/uL (140-400); RED BLOOD COUNT 3.65 x10^6/uL (3.50-5.40); RED CELL DISTRIBUTION WIDTH 14.5 % (11.5-14.5)
[2020-02-26 06:30] VITALS: BP 156/108
--- NOTE | 2020-02-26 08:36 | PDOC ---
PROGRESS NOTES Assessment Severe right footdrop, has slight plantar flexion weakness, but this could easily still be just peroneal neuropathy. She does have L4-L5, L5-S1 disc bulges, severe facet arthropathy, annular tear a nd far lateral protrusions and L5-S1, but no significant spinal stenosis. Mild bilateral neural foraminal narrowing. Also has cervical spondylosis, no significant central stenosis. Nothing to explain bilateral arm numbness. It turns out Dr. Sharp has already performed and EMG, showing "nerve damage" patient says No evidence of cerebrovascular disease She has several worrisome symptoms including headaches, memory loss, but MRI brain is negative Note that she is on a rather high dose of prednisone for arthritis Plan Discussed possible antidepressant, patient does not feel depressed Daily aspirin Okay for discharge Follow up with Dr. Sharp, follow up with me as needed. EMG of upper extremities if not already done, defer to Dr. Sharp Subjective Feels better Objective Vital Signs Date Time Temp Pulse Resp B/P (MAP) Pulse Ox O2 Delivery O2 Flow Rate FiO2 02/26/20 06:30 97.9 64 18 156/108 (124) 97 Room Air 97.9 Intake and Output 02/26/20 07:00 Intake Total 1050 ml Balance 1050 ml Intake Oral 1050 ml # Voids 1 PHYSICAL EXAM Alert. Oriented to time, place and person. PERRL. EOMI. CN: no focal findings. Muscle tone: normal. Muscle strength: 2/5 right foot drop, 5-/5 right plantar flexion, otherwise 5/5 strength with normal tone and bulk DTR: 1+ Plantar reflex: flexor Gait: not examined in bed. Sensory exam: no abnormal findings. No cerebellar signs elicited. Review of Relevant I have reviewed the following items ariane (where applicable) has been applied. Labs Laboratory Tests Test 02/25/20 14:35 02/26/20 03:50 White Blood Count 6.2 x10^3/uL (4.0-11.0) 5.0 x10^3/uL (4.0-11.0) Red Blood Count 3.76 x10^6/uL (3.50-5.40) 3.65 x10^6/uL (3.50-5.40) Hemoglobin 12.7 g/dL (12.0-15.5) 12.4 g/dL (12.0-15.5) Hematocrit 37.2 % (36.0-47.0) 36.4 % (36.0-47.0) Mean Corpuscular Volume 99 fL (79-100) 100 fL (79-100) Mean Corpuscular Hemoglobin 34 pg (25-35) 34 pg (25-35) Mean Corpuscular Hemoglobin Concent 34 g/dL (31-37) 34 g/dL (31-37) Red Cell Distribution Width 14.4 % (11.5-14.5) 14.5 % (11.5-14.5) Platelet Count 285 x10^3/uL (140-400) 273 x10^3/uL (140-400) Neutrophils (%) (Auto) 45 % (31-73) 37 % (31-73) Lymphocytes (%) (Auto) 47 % (24-48) 53 % (24-48) Monocytes (%) (Auto) 7 % (0-9) 6 % (0-9) Eosinophils (%) (Auto) 0 % (0-3) 1 % (0-3) Basophils (%) (Auto) 1 % (0-3) 2 % (0-3) Neutrophils # (Auto) 2.8 x10^3/uL (1.8-7.7) 1.9 x10^3/uL (1.8-7.7) Lymphocytes # (Auto) 2.9 x10^3/uL (1.0-4.8) 2.7 x10^3/uL (1.0-4.8) Monocytes # (Auto) 0.4 x10^3/uL (0.0-1.1) 0.3 x10^3/uL (0.0-1.1) Eosinophils # (Auto) 0.0 x10^3/uL (0.0-0.7) 0.1 x10^3/uL (0.0-0.7) Basophils # (Auto) 0.1 x10^3/uL (0.0-0.2) 0.1 x10^3/uL (0.0-0.2) Sodium Level 143 mmol/L (136-145) Potassium Level 3.6 mmol/L (3.5-5.1) Chloride Level 105 mmol/L (98-107) Carbon Dioxide Level 29 mmol/L (21-32) Anion Gap 9 (6-14) Blood Urea Nitrogen 7 mg/dL (7-20) Creatinine 0.8 mg/dL (0.6-1.0) Estimated GFR (Cockcroft-Gault) 89.8 BUN/Creatinine Ratio 9 (6-20) Glucose Level 82 mg/dL (70-99) Calcium Level 8.1 mg/dL (8.5-10.1) Total Bilirubin < 0.1 mg/dL (0.2-1.0) Aspartate Amino Transf (AST/SGOT) 160 U/L (15-37) Alanine Aminotransferase (ALT/SGPT) 114 U/L (14-59) Alkaline Phosphatase 73 U/L (46-116) Total Protein 6.3 g/dL (6.4-8.2) Albumin 3.1 g/dL (3.4-5.0) Albumin/Globulin Ratio 1.0 (1.0-1.7) Triglycerides Level 78 mg/dL (0-150) Cholesterol Level 248 mg/dL (0-200) LDL Cholesterol, Calculated 120 mg/dL (0-100) VLDL Cholesterol, Calculated 16 mg/dL (0-40) Non-HDL Cholesterol Calculated 136 mg/dL (0-129) HDL Cholesterol 112 mg/dL (40-60) Cholesterol/HDL Ratio 2.2 Thyroid Stimulating Hormone (TSH) 1.247 uIU/mL (0.358-3.74) Laboratory Tests Test 02/25/20 14:35 02/26/20 03:50 White Blood Count 6.2 x10^3/uL (4.0-11.0) 5.0 x10^3/uL (4.0-11.0) Red Blood Count 3.76 x10^6/uL (3.50-5.40) 3.65 x10^6/uL (3.50-5.40) Hemoglobin 12.7 g/dL (12.0-15.5) 12.4 g/dL (12.0-15.5) Hematocrit 37.2 % (36.0-47.0) 36.4 % (36.0-47.0) Mean Corpuscular Volume 99 fL (79-100) 100 fL (79-100) Mean Corpuscular Hemoglobin 34 pg (25-35) 34 pg (25-35) Mean Corpuscular Hemoglobin Concent 34 g/dL (31-37) 34 g/dL (31-37) Red Cell Distribution Width 14.4 % (11.5-14.5) 14.5 % (11.5-14.5) Platelet Count 285 x10^3/uL (140-400) 273 x10^3/uL (140-400) Neutrophils (%) (Auto) 45 % (31-73) 37 % (31-73) Lymphocytes (%) (Auto) 47 % (24-48) 53 % (24-48) Monocytes (%) (Auto) 7 % (0-9) 6 % (0-9) Eosinophils (%) (Auto) 0 % (0-3) 1 % (0-3) Basophils (%) (Auto) 1 % (0-3) 2 % (0-3) Neutrophils # (Auto) 2.8 x10^3/uL (1.8-7.7) 1.9 x10^3/uL (1.8-7.7) Lymphocytes # (Auto) 2.9 x10^3/uL (1.0-4.8) 2.7 x10^3/uL (1.0-4.8) Monocytes # (Auto) 0.4 x10^3/uL (0.0-1.1) 0.3 x10^3/uL (0.0-1.1) Eosinophils # (Auto) 0.0 x10^3/uL (0.0-0.7) 0.1 x10^3/uL (0.0-0.7) Basophils # (Auto) 0.1 x10^3/uL (0.0-0.2) 0.1 x10^3/uL (0.0-0.2) Sodium Level 143 mmol/L (136-145) Potassium Level 3.6 mmol/L (3.5-5.1) Chloride Level 105 mmol/L (98-107) Carbon Dioxide Level 29 mmol/L (21-32) Anion Gap 9 (6-14) Blood Urea Nitrogen 7 mg/dL (7-20) Creatinine 0.8 mg/dL (0.6-1.0) Estimated GFR (Cockcroft-Gault) 89.8 BUN/Creatinine Ratio 9 (6-20) Glucose Level 82 mg/dL (70-99) Calcium Level 8.1 mg/dL (8.5-10.1) Total Bilirubin < 0.1 mg/dL (0.2-1.0) Aspartate Amino Transf (AST/SGOT) 160 U/L (15-37) Alanine Aminotransferase (ALT/SGPT) 114 U/L (14-59) Alkaline Phosphatase 73 U/L (46-116) Total Protein 6.3 g/dL (6.4-8.2) Albumin 3.1 g/dL (3.4-5.0) Albumin/Globulin Ratio 1.0 (1.0-1.7) Triglycerides Level 78 mg/dL (0-150) Cholesterol Level 248 mg/dL (0-200) LDL Cholesterol, Calculated 120 mg/dL (0-100) VLDL Cholesterol, Calculated 16 mg/dL (0-40) Non-HDL Cholesterol Calculated 136 mg/dL (0-129) HDL Cholesterol 112 mg/dL (40-60) Cholesterol/HDL Ratio 2.2 Thyroid Stimulating Hormone (TSH) 1.247 uIU/mL (0.358-3.74) Medications Current Medications Albuterol Sulfate (Ventolin Neb Soln) 2.5 mg PRN Q4HRS PRN INH wheezing; Start 02/25/20 at 13:30 Amlodipine Besylate (Norvasc) 5 mg DAILY PO ; Start 02/26/20 at 09:00 Atorvastatin Calcium (Lipitor) 10 mg HS PO Last administered on 02/25/20at 21:09; Start 02/25/20 at 21:00 Fluticasone Propionate (Flonase) 2 spray DAILY NS ; Start 02/26/20 at 09:00 Montelukast Sodium (Singulair) 10 mg HS PO Last administered on 02/25/20at 21:09; Start 02/25/20 at 21:00 Nicotine (Nicoderm Cq 14mg) 1 patch DAILY TD ; Start 02/26/20 at 09:00 Cyclobenzaprine HCl (Flexeril) 5 mg BID PO Last administered on 02/25/20at 21:09; Start 02/25/20 at 21:00 Ibuprofen (Motrin) 600 mg PRN BID PRN PO ARTHRITIS; Start 02/25/20 at 13:30 Aspirin (Papito Aspirin) 325 mg DAILYWBKFT PO Last administered on 02/25/20at 13:49; Start 02/25/20 at 13:30 Active Scripts Active Proair Hfa Inhaler (Albuterol Sulfate) 8.5 Gm Hfa.aer.ad 2 Puff IH PRN Q4-6HRS PRN 21 Days Reported Proair Respiclick (Albuterol Sulfate) 90 Mcg Aer.pow.ba 2 Puff IN PRN Q4-6HRS PRN Nicotine Lozenge (Nicotine Polacrilex) 4 Mg Lozenge 2 Mg PO Q2HR 20 Days NICODERM CQ 14mg (Nicotine) 1 Each Patch.td24 1 Patch TP DAILY Singulair Tablet (Montelukast Sodium) 10 Mg Tablet 10 Mg PO HS Atorvastatin Calcium 10 Mg Tablet 1 Tab PO HS Fluticasone Propionate Nasal [place] (Fluticasone Propionate) 16 Gm [place].susp 2 Sprays NS DAILY Cyclobenzaprine Hcl 5 Mg Tablet 1 Tab PO BID Prednisone 50 Mg Tablet 50 Mg PO DAILY Ibuprofen 600 Mg Tablet 600 Mg PO BID Amlodipine Besylate 5 Mg Tablet 5 Mg PO DAILY Vitals/I & O Vital Sign - Last 24 Hours 02/25/20 02/25/20 02/25/20 02/25/20 12:00 13:00 15:00 15:55 Temp 98.0 98.6 98.0 98.6 Pulse 97 85 Resp 18 18 B/P (MAP) 129/67 (87) 142/91 (108) Pulse Ox 98 96 98 O2 Delivery Room Air Room Air Room Air Room Air 02/25/20 02/25/20 02/25/20 02/26/20 19:26 20:00 22:38 02:37 Temp 98.0 98.2 98.1 98.0 98.2 98.1 Pulse 87 79 68 Resp 18 18 18 B/P (MAP) 156/81 (106) 180/95 (123) 162/101 (121) Pulse Ox 96 96 96 O2 Delivery Room Air Room Air Room Air Room Air 02/26/20 06:30 Temp 97.9 97.9 Pulse 64 Resp 18 B/P (MAP) 156/108 (124) Pulse Ox 97 O2 Delivery Room Air Intake and Output 5/26/20 5/26/20 5/27/20 15:00 23:00 07:00 Intake Total 0 ml 1050 ml Balance 0 ml 1050 ml Images BRAIN W/O CONTRAST Date: 02/25/2020 3:38 PM Indication: Headache, memory loss, upper extremity numbness, foot drop Comparison: None. Technique: Multiplanar multisequence MRI of the brain was performed without intravenous contrast using the standard protocol. Findings: No acute infarct. No acute hemorrhage. Punctate focus of gradient susceptibility in the right putamen, likely chronic hypertensive microhemorrhage. The ventricles are normal in size and configuration without hydrocephalus. Moderate scattered FLAIR hyperintensities in the subcortical and periventricular deep white matter, a nonspecific finding, most commonly seen with chronic small vessel ischemic disease. The scalp and calvarium are normal. The pituitary and sella are normal. No Chiari malformation. The visualized upper cervical spine is normal. The visualized orbits and globes are normal. The visualized paranasal sinuses are clear. The mastoid air cells are clear. Normal flow voids within the vertebral, basilar, and internal carotid arteries indicating patency. IMPRESSION: 1. No acute infarct, acute hemorrhage, mass, or hydrocephalus. 2. Moderate scattered FLAIR hyperintensities in the subcortical and periventricular deep white matter, a nonspecific finding, most commonly seen with chronic small vessel ischemic disease. MRI Cervical Spine Without Contrast History:Headaches, memory loss, arm numbness and neck pain, right foot drop Technique: Multiplanar, multi sequential noncontrast MR imaging was performed of the cervical spine. Comparison: None Findings: There is motion degradation. Cervical cord caliber is within normal limits, no expansile or defined signal abnormality, limited evaluation for subtle signal change due to motion degradation. There is mild cervical dextroscoliosis. Cervical vertebral body stature is overall maintained. There is very minimal posterior subluxation of C4 relative to C5. There is [id number] C4-5 degenerative disc disease and minimally at C5-6 and C6-7. There is variable degenerative endplate change C4-5-7. There is minimal C6-7 endplate edema probably reactive/degenerative in etiology. There is nonspecific mild prominence of the adenoids. There is T2 hyperintense lesion of the visualized right thyroid gland estimated about 0.8 cm. C2-C3: Spinal canal and neural foramina are adequate. C3-C4: Spinal canal and neural foramina are adequate. C4-C5: There is minimal disc osteophyte complex. Central canal is minimally narrowed about 9 to 10 mm. There is facet and uncovertebral degenerative change. There is probable fairly severe left and moderate to severe right neural foramina compromise. C5-C6: There is negligible disc osteophyte complex. Central canal is adequate about 11 mm. There is bilateral facet degenerative change, also likely mild uncovertebral degenerative change. There is likely mild narrowing of the right neural foramen, left neural foramen not significantly narrowed. C6-C7: There is negligible disc osteophyte complex. Central canal is adequate about 12 mm. There is uncovertebral and facet degenerative change. There is probable mild left and probable moderate to severe right neural foramina compromise. C7-T1: Spinal canal and neural foramina are adequate. Impression: 1. There is mild spinal stenosis C4-5. There is suspected neural foramina compromise as stated, more significant narrowing bilaterally at C4-5 and on the right at C6-7 in part due to facet and uncovertebral degenerative change. There is degenerative disc disease greatest at C4-5. LUMBAR SPINE WO CONTRAST Date: 02/25/2020 3:38 PM Indication: Back pain, right foot drop Comparison: None. Technique: Multi-planar multi-weighted magnetic resonance imaging of the lumbar spine was performed without intravenous contrast using the standard lumbar spine protocol. FINDINGS: The lumbar spine is normally aligned. No acute fracture. Multilevel degenerative disc desiccation and disc height loss, worst and moderate at L5-S1. Fatty degenerative endplate changes at L5-S1. The conus terminates at a normal level. No abnormal signal is seen within the visualized distal spinal cord. No clumping of intrathecal nerve roots. No soft tissue abnormality in the visualized abdomen or pelvis. T12-L1: No disc bulge. No facet arthropathy. No significant spinal stenosis or neural foraminal narrowing. L1-L2: No disc bulge. No facet arthropathy. No significant spinal stenosis or neural foraminal narrowing. L2-L3: No disc bulge. Mild facet arthropathy. No significant spinal stenosis or neural foraminal narrowing. L3-L4: No disc bulge. Mild facet arthropathy. No significant spinal stenosis or neural foraminal narrowing. L4-L5: Disc bulge. Severe facet arthropathy. No significant spinal stenosis. Mild bilateral neural foraminal narrowing. L5-S1: Disc bulge with annular tear and far lateral protrusions. Moderate facet arthropathy. No significant spinal stenosis. Mild bilateral neural foraminal narrowing. IMPRESSION: Mild to moderate lumbar spondylosis, detailed level by level above. No high-grade spinal canal stenosis. PRISCA COREA MD February 26, 2020 08:36
[2020-02-26] MEDS ORDERED: FLUTICASONE 50MCG/NASAL SPRAY 16GM BOTTLE. NS SCH (09:00)
[2020-02-26] MEDS ORDERED: NICOTINE 14MG PATCH. TD SCH (09:00)
[2020-02-26] MEDS ORDERED: amLODIPine BESYLATE 5 MG TABLET PO SCH (09:00)
[2020-02-26] MEDS: ASPIRIN 325 MG TABLET PO SCH (09:30)
[2020-02-26] MEDS: CYCLOBENZAPRINE 10 MG TABLET. PO SCH (09:31)
[2020-02-26 09:32] VITALS: BP 147/107
--- NOTE | 2020-02-26 10:13 | PDOC ---
Provider Note Provider Note Pt seen.H&P dictated.#[id number]. MARCO A YIN MD February 26, 2020 10:13
--- NOTE | 2020-02-26 11:31 | HP ---
ADMIT DATE: 02/25/2020 MEDICAL HISTORY AND PHYSICAL: REASON FOR ADMISSION TO THE HOSPITAL: Right-sided weakness, numbness, paresthesias, weakness in right upper extremity as well as footdrop in the right leg, possible CVA. HISTORY OF PRESENT ILLNESS: The patient is a 55-year-old female. The patient has been in and out of the hospitals and clinics for some time. She was noticed to have right foot unsteadiness and was diagnosed with footdrop, had a CT of the head and the patient had seen couple of times in the office and she has now developing right upper extremity numbness and weakness and headache, memory problems and the patient was admitted to the hospital for possibility of subacute stroke. PAST MEDICAL HISTORY: She has a history of hypertension, hyperlipidemia, asthma, smoker. PAST SURGICAL HISTORY: No major surgical history. FAMILY HISTORY: Diabetes, liver disease. SOCIAL HISTORY: Works for [employer], smokes half a packet and also [address] drugs. MEDICATIONS AT HOME: She is on albuterol, amlodipine 5 mg daily, atorvastatin 10 mg daily, Singulair 10 mg daily, Flexeril 5 mg twice a day, ibuprofen 600 twice a day. She was placed on prednisone 50 mg to take for at least 3-5 days for possible disk problem. REVIEW OF SYSTEMS: Cardiac allen, denies any chest pain. GI, no nausea or vomiting. Complains of problem with numbness, paresthesias and memory problems Rest of the 14-system was reviewed and negative. ALLERGIES: PENICILLIN CAUSES RASH. SHELLFISH CAUSES SWELLING. PHYSICAL EXAMINATION: GENERAL: The patient is not in any distress. VITAL SIGNS: At the time of admission shows a temperature 98, pulse 97, respirations 18, blood pressure 129/67, 98 on room air. HEENT: Head is atraumatic. Pupils are equal. Oral cavity: No congestion. NECK: Supple. Thyroid not enlarged. JVD not elevated. CHEST: Symmetrical. CARDIOVASCULAR: S1, S2. No murmurs. LUNGS: Clear to auscultation. No wheezing. ABDOMEN: Soft, bowel sounds present, no mass palpable. EXTERNAL GENITALIA: No Arndt. RECTAL: Deferred. EXTREMITIES: No edema. NEUROLOGIC: Cranial nerves intact. 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 Right foot, the patient has a footdrop. I was able to flex and extend of the hip and the knee. Left side, there is no weakness. LABORATORY DATA: Shows a white count of 6, hemoglobin 12, platelets 285. Electrolytes are sodium 142, potassium 3.6, chloride 105, bicarbonate 29, BUN 7, creatinine 0.8, glucose 82. LFTs show AST 160, ALT 114, cholesterol 248, LDL 120. TSH 1.27. Chest x-ray negative. EKG negative for acute ischemia. FINAL IMPRESSION: 1. Right-sided weakness started as a footdrop. Now, she has right upper extremity numbness and paresthesias with weakness, possible to have subacute stroke. 2. Hypertension. 3. Hyperlipidemia. 4. Slightly elevated liver function test. 5. Asthma. PLAN: At this time, she was admitted to the hospital, had a CT scan of the head done a couple of weeks ago. We will do MRI of the brain with and without contrast. Neurology consultation, Dr. Soliz, carotid Doppler, echocardiogram and further recommendations to follow. Started on aspirin for treatment for possible stroke. MARCO A YIN MD DR: MEJIA/aviva JOB#: [id number] / [id number]
--- NOTE | 2020-02-26 11:40 | NUR ---
Discharge Note: JOSUE CHAND FORD Discharge instructions and discharge home medications reviewed with Patient and a copy given. All questions have been answered and understanding verbalized. The following instructions and handouts were given: medication list, written work excuse Discontinued lines and drains: peripheral IV discontinued intact. Patient discharged to home with spouse via wheelchair
--- NOTE | 2020-02-26 20:50 | PDOC ---
Provider Note Provider Note Discharge summary dictated.#[id number]. MARCO A YIN MD February 26, 2020 20:49
--- NOTE | 2020-02-26 21:34 | DS ---
DATE OF DISCHARGE: 02/26/2020 REASON FOR ADMISSION TO THE HOSPITAL: Right-sided weakness, paresthesias, right upper extremity and foot drop right lower leg, possible subacute stroke. CONSULTATIONS: Roz. PROCEDURES DONE: MRI of the brain. MRI of the cervical spine. MRI of the lumbar spine. Carotid Doppler, echocardiogram. HOSPITAL COURSE: The patient is a 55-year-old female patient had progressive weakness going on for some time started at the right lower leg and she had developed foot drop, was given a brace, then she developed weakness and paresthesias right upper extremity, was admitted to the hospital for possible subacute stroke. Her MRI of the brain was negative, was seen by Neurology who recommended MRI of the cervical spine as well as lumbar spine shows some degenerative arthritis in the cervical spine, but nothing large enough needing any surgical intervention. The patient had a carotid Doppler, no blockages. Had echocardiogram and looks normal left ventricular function, could be some interatrial shunt not 100% sure. The patient was discharged home and recommended outpatient followup. FINAL DIAGNOSES: 1. Right upper arm extremity, probably secondary to cervical radiculopathy, negative for acute stroke. 2. Right lower leg weakness secondary to foot drop. 3. Asthma. 4. Hypertension. 5. Hyperlipidemia. 6. Smoking. 7. Mildly elevated liver function tests. PLAN: At this time, discharged home. Smoking counseling was done for liver function test as outpatient. MARCO A YIN MD DR: MEJIA/aviva JOB#: [id number] / [id number]
== END 2020-02-26 11:10 | disposition home or self-care (01) | DRG 552 ==
LOC: 2 NORTH 11:42
PROVIDERS: ADMIT Internal Medicine; ATTEND Internal Medicine
DX: M47.22 Other spondylosis with radiculopathy, cervical region (principal); R20.0 Anesthesia of skin; E78.5 Hyperlipidemia, unspecified; N18.9 Chronic kidney disease, unspecified; J44.9 Chronic obstructive pulmonary disease, unspecified; M21.371 Foot drop, right foot; M48.02 Spinal stenosis, cervical region; M47.26 Other spondylosis with radiculopathy, lumbar region; I12.9 Hypertensive chronic kidney disease with stage 1 through stage 4 chronic kidney disease, or unspecified chronic kidney disease; F32.9 Major depressive disorder, single episode, unspecified; R25.2 Cramp and spasm; R41.3 Other amnesia; R79.89 Other specified abnormal findings of blood chemistry; F17.210 Nicotine dependence, cigarettes, uncomplicated; Z83.3 Family history of diabetes mellitus; Z83.79 Family history of other diseases of the digestive system; Z81.1 Family history of alcohol abuse and dependence; Z88.0 Allergy status to penicillin; Z91.013 Allergy to seafood; Z79.899 Other long term (current) drug therapy
CPT/HCPCS: 36415; 70551; 71045; 72141; 72148; 80053; 80061; 84443; 85025; 93005; 93306; 93880; 94760; 99406; G0378

== ENCOUNTER → 2021-02-08 | Outpatient (CLI) | payer OTHER ==
[~2021-02-08] MED LIST changes: +AMLO-186 PO; -AMLO5TAB10 PO; +ATOR10TA60 PO; +CYCL5TAB PO; +FLUT16SP NS; +IBUP-985 PO; +IOHEXOL 240 MG/ML 50ML VIAL. PO ONE; +IOHEXOL 300 MG/ML 100ML VIAL. IV ONE; +MONT10TA49 PO; +NICO1PAT25 TP; +NICO4LOZ93 PO; +PRED50TA PO; +PROAIR RESPICL90 MCG IN
--- NOTE | 2021-02-08 16:53 | RAD ---
CT CHEST+ABD+PELVIS W History: Weight loss, smoker, elevated LFTs. Comparison: None. Technique: CT of the chest, abdomen and pelvis with oral and intravenous contrast. Findings: Pulmonary arteries: No large or central pulmonary embolism. Aorta and great vessels: No aneurysm of the aortic arch or thoracic aorta is seen. No significant ath erosclerotic calcification. Heart: The heart is normal in size. There is no pericardial effusion. No significant coronary artery calcification. Thyroid: No significant abnormalities. Mediastinum and florence: Calcified left hilar and subcarinal lymph nodes. No enlarged adenopathy. Esophagus: The visualized esophagus is normal. Trachea: The visualized tracheobronchial tree is normal. Lungs: Mild paraseptal emphysematous change. 5 mm right lower lobe pulmonary nodule (axial 26). Pleural space: There is no pneumothorax or pleural effusion. General abdomen: No ascites. No free air. Liver : Normal in size and attenuation. No masses seen. Gallbladder/Biliary Tree: Normal gallbladder. No intrahepatic or extrahepatic biliary ductal dilatati on. Pancreas: Normal. Spleen: Normal in size and attenuation. Adrenal glands: Normal. Kidneys: No hydronephrosis or hydroureter. Indeterminate cystic lesion of the left renal upper pole m easuring 2.1 cm and 24 Hounsfield units. Gastrointestinal: Unremarkable. Lymph nodes: No lymphadenopathy. Vessels: Unremarkable. Pelvic Organs: Unremarkable reproductive organs. No pelvic masses. The decompressed bladder is unrema rkable. Soft tissues: Unremarkable. Bones: No acute or aggressive lesions. Degenerative disc and facet disease greatest at L4-L5 and L5-S 1. Impression: 1. Indeterminate cystic lesion in the left renal upper pole 2.1 cm in diameter which measures greate r than fluid density. Recommend multiphase MR or CT of the kidney for further evaluation. Alternative ly, a renal ultrasound may be able to establish cystic nature. 2. Right lower lobe pulmonary nodule measuring 5 mm. In high-risk patient, optional follow-up chest CT in 12 months. 3. Mild paraseptal emphysematous change. ------ Exposure: One or more of the following individualized dose reduction techniques were utilized for thi s examination: 1. Automated exposure control 2. Adjustment of the mA and/or kV according to patient size 3. Use of iterative reconstruction technique. Electronically signed by: Mathew Thompson MD (02/08/2021 4:50 PM) [facility]
== END ==
LOC: CT 15:10
PROVIDERS: ATTEND Internal Medicine
DX: J43.9 Emphysema, unspecified (principal); N28.1 Cyst of kidney, acquired; R79.89 Other specified abnormal findings of blood chemistry; R63.4 Abnormal weight loss; R91.1 Solitary pulmonary nodule; F17.200 Nicotine dependence, unspecified, uncomplicated
CPT/HCPCS: 71260; 74177; Q9966; Q9967